=== PATIENT | female | born 1970 | race African-American/Black ===

== ENCOUNTER → 2016-07-12 | Outpatient (CLI) | payer MEDICARE, OTHER ==
[~2016-07-12] MED LIST: (NONE)120 M1 PO; ACETAMINOPHEN PO; ADVAIR; ADVAIR 250-501 EACH IH; ADVAIR 2501 DISK W/D PO; ALBUTEROL17 GM; ALBUTEROL17 GM INH; ALDACTAZIDE PO; ASPIRIN PO; ASPIRIN81 M1 PO; ATIVAN0.5 MG PO; AUGMENTIN PO; AZITHROMYCIN250 MG PO; BENADRYL PO; CALAN PO; CELEBREX PO; COMBIVENT INH14.7 GM INH; COMBIVENT MININEB INH; COMBIVENT U/D3 M2 INH; CRESTOR PO; ESCITALOPRAM OXA5 MG PO; FLEXERIL10 M1 PO; FUROSEMIDE40 MG PO; HCTZ PO; HUMIBID L.1 TAB.SR . PO; HYDROCHLOROTHIA25 MG PO; HYDROCODON-ACE1 EAC7 PO; HYDROCODONE/APA1 T16 PO; KETOPROFEN PO; LANOXIN PO; LASIX PO; LEVAQUIN PO; LIPITOR PO; LIPITOR20 MG PO; LIPITOR40 MG PO; LISINOPRIL; LISINOPRIL1 GM PO; LOPRESSOR PO; MEDROL PO; MOTION RELIEF25 MG PO; MOTION SICKNESS25 M4 PO; MUCUS ER600 MG PO; MULTI-DAY VITAM1 TAB PO; NAPROSYN500 MG PO; NAPROXEN PO; NASACORT AQ16.5 GM; NEURONTIN100 MG PO; NEURONTIN300 MG PO; NITROGYLCERIN SUBLINGUAL; NORCO 5/325 TAB1 TAB PO; OCEAN NASAL SPRAY; OCEAN45 ML; PERCOCET10 PO; PREDNISONE PO; PREDNISONE10 MG; PROAIR HFA8.5 GM INH; PROAIR RESPICL90 MCG INH; PROTONIX PO; SPORANOX100 MG PO; SYMBICORT INH; TUSSIONEX PENN473 ML PO; VENTOLIN HFA IH; VERAPAMIL ER100 MG PO; VERAPAMIL ER180 MG PO; VIBRAMYCIN100 M1 PO; WELCHOL3.75 GM PO; WELLBUTRIN PO; WELLBUTRIN SR150 MG PO; WELLBUTRIN100 MG PO; ZAROXYLYN PO; ZYRTEC10 M2 PO; [UNRECOGNIZED DRUG - OTHER]; [UNRECOGNIZED DRUG - REMARK]
--- NOTE | ~2016-07-12 | MY6 ---
[facility] A Service of [facility] & [facility] / [facility] RADIOLOGY TEXT RESULTS PATIENT: MARIALUISA RAMIREZ LOCATION: [facility] : 70 UNIT #: [id number] AGE: [address]: FERNY OLVERA SEX: F ORDER DR: [id number] [facility] [place] [address] [place], [place] [address] [id number] O MR#: [id number] Acc #: [id number] NAME: MARIALUISA RAMIREZ : 1970 SEX: F STUDY DATE/TIME: 07/12/2016 9:46 UNIT: [facility] ROOM: STUDY DESCRIPTION: MY Mammogram Dx Dig Javier Attending Physician: Ferny Olvera Aprn Referring Physician: Ferny Olvera Aprn Primary Care Physician: Ferny Olvera Aprn MEDICAL IMAGING REPORT This report is preliminary unless electronic signature is present EXAM Bilateral digital diagnostic mammogram and targeted left breast ultrasound 07/12/2016 INDICATIONS 46-year-old female complaining of a discolored raised itchy area in the periareolar left breast for the past month. She denies a palpable abnormality. No personal or family history of breast cancer. History of bilateral breast reduction procedure nearly 26 years ago. TECHNIQUE CC and MLO views of both breasts were obtained and reviewed with an approved CAD device. A true lateral view was obtained on the left. We have no comparisons. This is her baseline study. FINDINGS Breast parenchyma is composed of scattered fibroglandular densities. There are postoperative changes in both breasts in a symmetric pattern characteristic of the history of bilateral breast reduction procedure. There is no dominant nodule, mass or suspicious cluster of microcalcifications. A few benign calcifications are present. No adenopathy, skin thickening or architectural distortion that is non surgical in nature. The area of palpable concern by the patient was marked by the technologist. It is in the periareolar left breast deep to the marker, there is no mammographic abnormality. The breast reduction surgical changes are slightly more prominent on the left than the right. Ultrasound of the area of patient palpable concern was thereafter performed along with ultrasound of the lower hemisphere left breast in the area of the patient's postoperative change, due to its slight asymmetric prominence on the left. [facility] A Service of [facility] & [facility] / [facility] RADIOLOGY TEXT RESULTS PATIENT: MARIALUISA RAMIREZ LOCATION: [facility] : 70 UNIT #: [id number] AGE: [address]: FERNY OLVERA SEX: F ORDER DR: Ultrasound findings: Left breast: The patient was initially scanned independently by the technologist and then rescanned in my presence. The area of patient concern in the periareolar 1 o'clock left breast is confined to the patient's skin. There is no palpable abnormality by the patient. Limited physical exam (with patient consent) was also performed by me here in the department and was negative. There is some scaling and flakiness of the skin lesion and the patient reports it is itchy. Below the level of the skin lesion with ultrasound, however, there is no cystic or solid nodule or other suspicious abnormality. Imaging findings are concordant with mammography and are most characteristic of a dermatologic process for which a dermatologic referral may be useful for further assessment and characterization/treatment. Imaging of the lower hemisphere left breast from the 5 o'clock through 7 o'clock position was also performed and demonstrates expected postoperative scarring related to the history of breast reduction. No other suspicious finding identified and imaging findings are concordant with mammography. Absent new or worsening symptoms in either breast, the patient should return for a repeat screening mammogram in a year. Clinical considerations to determine additional imaging at this time. Findings and recommendations were discussed with the patient here in the department. She voiced understanding and agreement. IMPRESSION 1. Benign diagnostic mammogram and targeted ultrasound of the left breast. There is no suspicious finding on the patient's mammogram to correlate with the area of skin irritation in the periareolar left breast. The patient may benefit from dermatologic referral for further assessment and treatment. 2. Postop changes of breast reduction procedure bilaterally. Targeted ultrasound of the lower hemisphere left breast was performed and demonstrates expected postoperative changes related to the history of breast reduction. 3. Return to an annual screening regimen is recommended. See discussion above. Patient's over the age of 40 are entered into a reminder system with target due date for the next mammogram. A result letter will be sent to the patient. BIRADS: 2 Benign findings. [facility] A Service of [facility] & [facility] / [facility] RADIOLOGY TEXT RESULTS PATIENT: MARIALUISA RAMIREZ LOCATION: [facility] : 70 UNIT #: [id number] AGE: [address]: FERNY OLVERA SEX: F ORDER DR: Dictated by... Demarcus Worley M.D. THIS IS AN ELECTRONICALLY VERIFIED REPORT Demarcus Worley M.D. at 07/13/2016 7:32 AM PAULY/abrahan TD: 07/12/2016 15:36 JOB #: [id number] MEDICAL IMAGING REPORT Page 1 of 1 COPY
--- NOTE | ~2016-07-12 | US24 ---
[facility] A Service of [facility] & [facility] RADIOLOGY TEXT RESULTS PATIENT: MARIALUISA RAMIREZ LOCATION: [facility] : 70 UNIT #: [id number] AGE: [address]: FERNY OLVERA SEX: F ORDER DR: [id number] [facility] [address] [place], [place] [address] [id number] O MR#: [id number] Acc #: [id number] NAME: MARIALUISA RAMIREZ : 1970 SEX: F STUDY DATE/TIME: 07/12/2016 10:19 UNIT: [facility] ROOM: STUDY DESCRIPTION: US Breast Unilateral Attending Physician: Ferny Olvera Aprn Referring Physician: Ferny Olvera Aprn Primary Care Physician: Ferny Olvera Aprn MEDICAL IMAGING REPORT This report is preliminary unless electronic signature is present EXAM Targeted ultrasound left breast 07/12/2016 FINDINGS See report from the bilateral diagnostic mammogram same date for this dictation given. Patients over the age of 40 are entered into a reminder system with target due date for the next mammogram. A result letter will also be sent to the patient. BIRADS: 2, benign findings. Dictated by... Demarcus Worley M.D. THIS IS AN ELECTRONICALLY VERIFIED REPORT Demarcus Worley M.D. at 07/13/2016 7:32 AM PAULY/etelvina TD: 07/12/2016 15:30 JOB #: [id number] MEDICAL IMAGING REPORT Page 1 of 1 COPY
== END | disposition home or self-care (01) ==
LOC: CMAM 09:16
DX: N64.89 Other specified disorders of breast (principal); Z98.890 Other specified postprocedural states
CPT/HCPCS: 76641; G0204

== ENCOUNTER 2016-10-04 19:21 | Observation (INO) | payer MEDICARE, OTHER ==
--- NOTE | ~2016-10-04 | DS ---
Unit #: [id number] #: [id number] Patient: MARIALUISA RAMIREZ [id number] [address] [address] [id number] I MR#: [id number] NAME: MARIALUISA RAMIREZ ROOM: 337 Age: 46 Sex: F Admission Date: 10/05/2016 : 1970 Discharge Date: 10/06/2016 Attending Physician: Gaetano Acevedo M.D. Primary Care Physician: No Primary Care Physician DISCHARGE SUMMARY DISCHARGE DIAGNOSES 1. Chest pain, atypical. 2. Near syncope. 3. Headache. 4. Anxiety. 5. Obstructive sleep apnea, untreated. 6. Morbid obesity. 7. Hypertension. 8. History of cardiomyopathy in 2001. 9. Negative exercise Cardiolite stress test. DISCHARGE MEDICATIONS 1. Albuterol MDI two puffs q.4 hours as needed for shortness of air. 2. Neurontin 100 mg p.o. twice a day. 3. Wellbutrin 100 mg p.o. twice a day. 4. Lexapro 5 mg p.o. daily. 5. Meclizine 25 mg p.o. three times a day. 6. Lasix 40 mg p.o. daily. 7. Lipitor 40 mg p.o. daily. HOSPITAL COURSE This is a 46-year-old -[place] female known to Dr. Acevedo with a prior medical history of cardiomyopathy diagnosed in 2001, hypertension, asthma, obstructive sleep apnea, and peripheral neuropathy. The patient presented from her primary care physician's office with bilateral lower extremity edema and intermittent chest pain described as tightness. The pain was intermittent and lasted only seconds and accompanied with some shortness of air. On October 05, 2016, she underwent a Cardiolite exercise stress test which was negative for inducible ischemia. She also had an echocardiogram with a reported normal LV EF. The report for the echocardiogram is currently unavailable. Upon return to her room from the stress test, she reported experiencing some dizziness while walking in the room, accompanied with darkening vision and chest tightness on the right. It resolved with rest. A CT of the head without contrast was performed and was normal. Orthostatic blood pressures were checked and there was no orthostatic hypotension. Neurology was consulted. Please see their consultation report. Today, she is currently ready for discharge. Her dizziness is improved, although still occasionally present with a constant headache. Her chest tightness still occurs intermittently but is tolerable. PHYSICAL EXAMINATION VITAL SIGNS: Temperature 98.6, heart rate 84, respiratory rate 16, blood Unit #: [id number] #: [id number] Patient: MARIALUISA RAMIREZ pressure 149/92. CHEST: Clear to auscultation without rales, rhonchi, or wheezing. Nonlabored respirations. HEART: S1, S2. Regular rate and rhythm. No murmurs, rubs, or gallops. ABDOMEN: Soft, nontender, nondistended. EXTREMITIES: No pulses are palpable. Trace lower extremity edema. No cyanosis. DIAGNOSTIC STUDIES LABORATORY: Glucose 119, BUN 12, creatinine 0.7, sodium 140, potassium 3.8, chloride 107. Lipid profile: Cholesterol 310, triglycerides 149, LDL 329, HDL 51. Hemoglobin 12.6, hematocrit 38.5, white blood cell count 7.8, platelets 305,000. IMAGING: Chest x-ray done October 04, 2016, showed no acute findings and no cardiomyopathy. Bilateral lower extremity venous Doppler was negative for DVT. CT of the head without contrast showed normal with no acute findings. CARDIOVASCULAR: EKG: Normal sinus rhythm on the monitor. Isolated incident of heart rate 140, sinus tachycardia last p.m. DISCHARGE INSTRUCTIONS 1. The patient will be discharged home today. 2. Followup with primary care physician in one to two weeks. 3. Followup with Dr. Acevedo in four to six weeks. 4. Recommend re-evaluation of obstructive sleep apnea. Chronic headache and left lower extremity swelling could be related to untreated sleep apnea. 5. Continue home medications. Dictated by... JULIETH Quesada/jag TD: 10/09/2016 08:59 JOB #: [id number] DISCHARGE SUMMARY Page 1 of 1 X X DISCHARGE SUMMARY
--- NOTE | ~2016-10-04 | CO ---
Unit #: [id number] #: [id number] Patient: MARIALUISA RAMIREZ [id number] [facility] [address] [place], [place] [address] [id number] I MR#: [id number] NAME: MARIALUISA RAMIREZ ROOM: 337 Age: 46 Sex: F Admission Date: 10/05/2016 : 1970 Attending Physician: Gaetano Acevedo M.D. Primary Care Physician: Primary Care Physician No Consultation Date: 10/06/2016 CONSULTATION REPORT PRIMARY CARE PHYSICIAN Not listed. REASON FOR CONSULTATION Dizziness, loss of vision, and headache. PATIENT IDENTIFICATION This is a 46-year-old right-handed, female, evaluated in room 337 at [facility]. SOURCE OF INFORMATION Obtained from the patient as well as medical record. HISTORY OF PRESENT ILLNESS This is a 46-year-old right-handed, female, known to our service from being seen in 2011 at this facility, seen for similar symptoms at that time. She presents with complaints of chest pain. When the patient was being discharged after workup for chest pain was unremarkable per Cardiology, she complained of feeling lightheaded and reports that she is having vision changes and is concerned about going home. Neurology was consulted and a stat CT of the head was done. Orthostatics were also ordered by Cardiology. When I came in to discuss with the patient, she reports that she is having episodes where she feels lightheaded when she stands up or walks around. She states that "everything goes black" and "I feel like I'm going to pass out." She complains of headache with this many times on the left side, and reports that she has left-sided migraines. She denies loss of consciousness, loss of speech, or speech changes. She denies amaurosis fugax. She reports that all of her symptoms resolved within a matter of seconds that she does not completely lose vision and that she does not lose consciousness. She denies falling. She states that she just feels weak, but is able to prevent herself from falling. She denies confusion, focal weakness or paresthesia, loss of consciousness or loss of awareness, neck pain, injury, fever, chills, or other associated symptoms. She states that this only occurs when she is standing or goes to walk. She states this occurs quickly after standing up. She denies that occurring in sitting or lying position. She denies any stroke-like symptoms or seizure-like presentation and again these symptoms only happen when she stands or walks and never with lying or sitting. She had a head CT done yesterday without contrast on 10/05/2016 as stat and the brain appears normal. Mucosal thickening is noted in the bilateral mastoid air cells with a few tiny air-fluid levels in the left mastoid air cells. She also had bilateral lower extremity venous Dopplers done per Cardiology on 10/04/2016 on this admission that was negative. Chest x-ray on 10/04/2016 that was negative. Unit #: [id number] #: [id number] Patient: MARIALUISA RAMIREZ She underwent exercise test for ischemia that was negative. No arrhythmias noted and normal blood pressure response during exercise as per Cardiology report. She denies any other exacerbating or alleviating factors or any other associated symptoms. She does report chronic migraines, for which she takes Tylenol on occasion. PAST MEDICAL HISTORY 1. cardiomyopathy diagnosed in 2001. Cardiac catheterization at that time that revealed normal coronaries. Echo in 2014 that showed left ventricular ejection fraction of 50% to 55%. 2. Hypertension. 3. Asthma. 4. Peripheral neuropathy. 5. Obstructive sleep apnea, noncompliant with CPAP. 6. Lexiscan Cardiolite in 2014, negative for ischemia. 7. Workup by Neurology in 2011 for syncope, dizziness, and vertigo. Thought to be possibly vagal due to hypoventilation or anxiety attack. Her neurologic workup was unremarkable. She underwent MRI of the brain and MR angiogram of the head and neck, which were all unremarkable. She underwent an MRI of the brain in 2014 for similar symptoms and the brain was essentially unremarkable other than some punctate 2 to 3 hyperintense T2 nonspecific nonenhancing lesions in the bifrontal centrum semiovale, particularly along the left superior aspect, probably related to minimal vasculopathy change like migraine in appropriate clinical setting. 8. . 9. Lap band in 2010. 10. Breast reduction. FAMILY HISTORY Positive for diabetes and congestive heart failure as well as CAD and myocardial infarction. ALLERGIES Stadol, Toradol, and Phenergan. SOCIAL HISTORY She is a nonsmoker, nondrinker, and does not use illicit drugs. MEDICATIONS Home medications include Lipitor, Wellbutrin, citalopram, Lasix, Neurontin, meclizine, and ProAir. REVIEW OF SYSTEMS 14-point review of systems was done. Pertinent positives are as discussed above, otherwise negative. She denies any generalized headaches, but complains of chronic left-sided migraine. She denies any blurred vision or chronic change in vision rather just vision changes related to the above presentation as discussed above. PHYSICAL EXAMINATION VITAL SIGNS: Temperature 98.6, she has been afebrile; pulse 86; respirations 20; blood pressure 149/88, blood pressure in the ER on arrival was 143/92; and oxygen saturation 100%. Height 5 feet 4 inches and weight 313 pounds, BMI 51. NEUROLOGIC: The patient is awake, alert, and oriented to person, place, and time as well as events. No right or left confusion. No finger agnosia. No aphasia, dysarthria, or apraxia. Cranial nerve exam, she demonstrates full crowley of vision. Eyes are conjugate without ptosis or Unit #: [id number] #: [id number] Patient: MARIALUISA RAMIREZ nystagmus. Extraocular movements are intact. Sensation of face and scalp is intact. Strength of muscles of facial expression is intact. Hearing is intact to finger rub and conversation. Tongue is midline. Uvula is midline. Palate elevation is normal. Head turning and shoulder shrug are unremarkable. Neck is supple. Motor exam, she demonstrates normal bulk and tone. Strength is equal 5/5 in all extremities. Sensory exam appears to be intact. Gait normal. Romberg deferred. Reflexes, unable to elicit. Toes are equivocal. Coordination, unremarkable. DIAGNOSTIC STUDIES IMAGING STUDIES: Please see above. LABORATORY RESULTS: Cholesterol 310, triglycerides 149, LDL 229, and HDL 51. TSH 4.10. CBC shows a white count of 7.8, hemoglobin 12.6, hematocrit 38.5, and platelet count 305. PT 11.0, INR 1.0, and PTT is 26.5. BMP unremarkable other than alkaline phosphatase of 93. Initial and repeat troponin are less than 0.05 and 0.03 respectively. IMPRESSION 1. Near syncope. 2. Chest pain, atypical. 3. Obstructive sleep apnea, noncompliant with CPAP. 4. Hypertension. 5. Morbid obesity. PLAN At this time, nothing suggestive of acute primary neurologic etiology. She complains more presyncopal symptoms or near syncopal symptoms and reports of vision change not suggestive of primary neurologic etiology at this time. She had no focal changes or amaurosis fugax noted. Nothing to suggest pseudotumor cerebri at this time. Symptoms only occur with standing or walking. She does appear to have chronic migraines, but not suggestive of pseudotumor cerebri at this time. Discussed with Dr. Paul, who saw the patient as well. He agrees to the above. She extends that it as near syncopal symptoms when she gets up quickly, but no seizure, loss of consciousness, or other focal deficits. Recommend she follow up with Neurology as an outpatient. Consider lumbar puncture and weight loss, but nothing else to add from an inpatient standpoint. The patient may be discharged to follow up with outpatient Neurology as needed. Please call for any questions or issues. We thank you very much for allowing us to assist in the care of this patient. Dictated by... Tamar Benton A.P.R.N. for Coreen Lara/vickey TD: 10/08/2016 04:42 JOB #: [id number] Unit #: [id number] #: [id number] Patient: MARIALUISA RAMIREZ CONSULTATION REPORT Page 1 of 1 X Tamar Benton EQUIP MAINT ENG X CONSULTATION REPORT
--- NOTE | ~2016-10-04 | CT71 ---
[facility] A Service of [facility] & [facility] RADIOLOGY TEXT RESULTS PATIENT: MARIALUISA RAMIREZ LOCATION: [facility] 337-01 : [birth year] UNIT #: [id number] AGE: [address]: Geatano Acevedo MD SEX: F ORDER DR: [id number] [facility] [address] [place], [place] [address] [id number] I MR#: [id number] Acc #: [id number] NAME: MARIALUISA RAMIREZ : 1970 SEX: F STUDY DATE/TIME: 10/05/2016 16:06 UNIT: [address] ROOM: [facility] STUDY DESCRIPTION: CT Head Wo Contrast Attending Physician: Gaetano Acevedo M.D. Ordering Physician: Gaetano Acevedo M.D. Primary Care Physician: No Primary Care Physician MEDICAL IMAGING REPORT This report is preliminary unless electronic signature is present EXAM CT head, 10/05/16. HISTORY New onset vertigo, headache today. History of migraine. TECHNIQUE CT head performed skull base through vertex without intravenous contrast. This CT exam was performed with one or more of the following radiation dose reduction techniques: automatic exposure control, adjustment of mA and/or kV according to patient size, and iterative reconstruction. COMPARISON 02/16/2012. FINDINGS Brainstem unremarkable. Cerebellum and cerebral hemispheres show normal ellis matter-white matter differentiation. No hemorrhage. No evidence of acute cortical ischemia. Midline structures nondisplaced. Basal ganglia intact. Ventricles, cisterns, sulci normal in size and contour. No intra or extraaxial mass effect or abnormal intracranial fluid collection. The visualized intraorbital soft tissues are unremarkable. Visualized paranasal sinuses and mastoid air cells show mucosal thickening in mastoid air cells. There are a few small air-fluid levels in the left mastoid air cells. No fracture. IMPRESSION 1. The brain appears normal. If patient has ongoing neurologic symptoms, consider follow up imaging, preferably with MRI if patient is candidate. 2. Mucosal thickening in the bilateral mastoid air cells with a few tiny air-fluid levels in the left mastoid air cells. Correlate with any clinical indications of mastoid inflammation. STS. [facility] A Service of [facility] & [facility] RADIOLOGY TEXT RESULTS PATIENT: MARIALUISA RAMIREZ LOCATION: [facility] 337-01 : [birth year] UNIT #: [id number] AGE: [address]: Gaetano Acevedo MD SEX: F ORDER DR: Dictated by... Khari Mora M.D. THIS IS AN ELECTRONICALLY VERIFIED REPORT Khari Mora M.D. at 10/11/2016 10:15 AM Patel TD: 10/05/2016 17:12 JOB #: [id number] MEDICAL IMAGING REPORT Page 1 of 1 COPY
--- NOTE | ~2016-10-04 | CR72 ---
[facility] A Service of [facility] & [facility] RADIOLOGY TEXT RESULTS PATIENT: MARIALUISA RAMIREZ LOCATION: [facility] 337-01 : [birth year] UNIT #: [id number] AGE: [address]: Gaetano Acevedo MD SEX: F ORDER DR: [id number] [facility] [address] [place], [place] [address] [id number] E MR#: [id number] Acc #: [id number] NAME: MARIALUISA RAMIREZ : 1970 SEX: F STUDY DATE/TIME: 10/04/2016 20:57 UNIT: [facility] ROOM: STUDY DESCRIPTION: CR Chest Single View Portable Attending Physician: Checo Galvan M.D. Ordering Physician: Ed Winston Krause M.D. Primary Care Physician: No Primary Care Physician MEDICAL IMAGING REPORT This report is preliminary unless electronic signature is present EXAM Single view chest. INDICATION Chest pain. Swollen legs. Hypertension. FINDINGS Single portable AP view chest compared to 01/28/2015. Heart and mediastinal contours within normal limits. Lungs are clear. No pneumothorax. IMPRESSION No acute findings. No interval change. Dictated by... Dante Lewis M.D. THIS IS AN ELECTRONICALLY VERIFIED REPORT Dante Lewis M.D. at 10/05/2016 1:18 PM SAMARIA/derick TD: 10/04/2016 22:15 JOB #: [id number] MEDICAL IMAGING REPORT Page 1 of 1 COPY
--- NOTE | ~2016-10-04 | US84 ---
[id number] [facility] [address] [place], [place] [address] [id number] E MR#: [id number] Acc #: [id number] NAME: MARIALUISA RAMIREZ : 1970 SEX: F STUDY DATE/TIME: 10/04/2016 21:49 UNIT: [facility] ROOM: STUDY DESCRIPTION: US LE Veins Complete Javier Stdy Attending Physician: Cristhian Galvan Ordering Physician: Ed Doc Coreen Krause Primary Care Physician: Primary Care Physician No MEDICAL IMAGING REPORT This report is preliminary unless electronic signature is present EXAM Bilateral lower extremity venous duplex Doppler. INDICATION Bilateral lower extremity swelling and edema for 3 days. Prior DVT 2 years ago. COMPARISON None available. FINDINGS No deep vein thrombus is identified. Patient's common femoral veins through the popliteal veins are widely patent. There is normal compressibility with spontaneous and phasic waveforms. No calf vein thrombus. IMPRESSION Negative for bilateral lower extremity deep vein thrombosis. Dictated by... Dante Lewis M.D. THIS IS AN ELECTRONICALLY VERIFIED REPORT Dante Lewis M.D. at 10/05/2016 1:19 PM SAMARIA/vaishnavi TD: 10/04/2016 22:55 JOB #: [id number] MEDICAL IMAGING REPORT Page 1 of 1 COPY
--- NOTE | ~2016-10-04 | EKG ---
PATIENT: MARIALUISA RAMIREZ UNIT #: [id number] Ventricular Rate: 112 BPM Atrial Rate: 112 BPM P-R Interval: 144 ms QRS Duration: 90 ms Q-T Interval: 364 ms QTC Calculation(Bezet): 496 ms P Carlton: 51 degrees Calculated R Carlton: 47 degrees Calculated T Carlton: 34 degrees Diagnosis Line: Sinus tachycardia Diagnosis Line: Nonspecific T wave abnormality Diagnosis Line: Abnormal ECG Diagnosis Line: When compared with ECG of 19-NOV-2014 09:05, Diagnosis Line: No significant change was found Diagnosis Line: Confirmed by MATTI PAREDES MD ([id number]) on Diagnosis Line: 10/06/2016 3:45:34 PM INTERPRETING MD: BRITTNI
--- NOTE | ~2016-10-04 | BMI ---
[facility] Nutrition Therapy DATE: 10/05/16 Patient: MARIALUISA RAMIREZ Physician: SHIRA Address: [address] Room/Bed: [address] [place] [address], Zip: [place] [address] Admit Date: 10/05/16 Date of : [birth year] Height: 5 4 Weight: 285 135 HIGH BMI NOTE: DX: 46 Y.O. FEMALE ADMITTED FOR CHEST PAIN ANTHROPOMETRICS: 5'4", WT: 285# (139 KG), BMI: 48.9 DIET: NPO RECOMMENDATIONS: 1. ONCE MEDICALLY FEASIBLE, ADVANCE DIET INDICATED TO HEALTHY HEART TO PROMOTE GRADUAL WEIGHT LOSS TOWARDS HEALTHY BMI (19.0-25.0) OR +/-10%IBW RD WILL F/U PER PROTOCOL Respectfully, BOBBY ORTEGA MS, RD, LD Food and Nutritional Services [facility] cc: client file
--- NOTE | ~2016-10-04 | HP ---
Unit #: [id number] #: [id number] Patient: MARIALUISA RAMIREZ [id number] [address] [place], [place] [address] [id number] I MR#: [id number] NAME: MARIALUISA RAMIREZ ROOM: 337 Age: 46 Sex: F Admission Date: 10/05/2016 : 1970 Attending Physician: Gaetano Acevedo M.D. Primary Care Physician: No Primary Care Physician HISTORY AND PHYSICAL CHIEF COMPLAINT Bilateral lower extremity edema and chest discomfort times two to three days. HISTORY OF PRESENT ILLNESS This is a 46-year-old female known to Dr. Acevedo with a prior medical history of cardiomyopathy diagnosed in 2001, hypertension, asthma, obstructive sleep apnea and peripheral neuropathy. She had a cardiac catheterization in 2001 which revealed normal coronaries. Lexiscan Cardiolite stress test in 2014 was negative for ischemia. An echo done 10/2014 showed left ventricular ejection fraction 50%-55%. She is a lifetime nonsmoker, but has a strong family history of premature coronary artery disease. The patient presented from her primary care physician's office with bilateral lower extremity edema and intermittent chest pain. She describes the chest pain as left chest pressure which spreads into her left back and is accompanied by brief shortness of air and nausea. She states the pain lasts only seconds and occurs frequently. It is not relieved with Tylenol or ibuprofen and has been ongoing off and on for 24 hours. In addition she reports waking up at night with headache and feeling like she had stopped breathing. She does have sleep apnea, but is unable to use her CPAP machine. Chest x-ray in the emergency room showed no active disease. She was admitted for observation with plans to do a Cardiolite exercise stress test in the a.m. She states she is still experiencing intermittent chest tightness and pressure in her left chest. PAST MEDICAL HISTORY 1. cardiomyopathy diagnosed in 2001. 2. Cardiac catheterization 2001 revealed normal coronaries. 3. Hypertension. 4. Asthma. 5. Peripheral neuropathy. 6. Obstructive sleep apnea, noncompliant with CPAP. 7. Lexiscan Cardiolite in 2014 negative for ischemia. 8. Echo 11/19/2014 showed left ventricular ejection fraction 50%-55%. 9. Lifetime nonsmoker. PAST SURGICAL HISTORY 1. . 2. Lap band in 2010. 3. Breast reduction. SOCIAL HISTORY Unit #: [id number] #: [id number] Patient: MARIALUISA RAMIREZ She has never smoked. Denies ever using alcohol or any illicit drugs. FAMILY HISTORY Her mother in her 50s, related to diabetes and congestive heart failure. Her brother at age 37 of congestive heart failure. Father at 39 of myocardial infarction. Sister at 37 of congestive heart failure. ALLERGIES Stadol, Toradol, Phenergan. HOME MEDICATIONS 1. Lipitor 40 mg p.o. daily. 2. Wellbutrin 100 mg p.o. b.i.d. 3. Citalopram oxalate 5 mg p.o. daily. 4. Lasix 40 mg p.o. daily. 5. Neurontin 100 mg p.o. b.i.d. 6. Meclizine 25 mg p.o. t.i.d. 7. ProAir 2 puffs q.4 h. p.r.n. shortness of air. REVIEW OF SYSTEMS Denies fever, chills, flu-like symptoms or unintentional weight loss. SKIN: Denies rashes or hives. HEENT: She has frequent headaches. Denies vision loss, hearing loss, epistaxis or dysphagia. NECK: Denies (1) drainage or pain. PULMONARY: Denies recent cough or wheezing. Reports increased dyspnea on exertion and PND. CARDIAC: Chest pain as discussed in history of present illness. Denies palpitations or orthopnea. GI: Reports nausea. Denies vomiting, diarrhea or melena. : Denies hematuria or dysuria. EXTREMITIES: Reports bilateral lower extremity swelling. Denies chronic pain. PHYSICAL EXAMINATION GENERAL: Alert and oriented 46-year-old female resting in bed, in no acute distress. VITALS: Temperature 97.2, heart rate 81, respiratory rate 18, blood pressure 142/66, height 64 inches, weight 135 kg. HEENT: Head is atraumatic and normocephalic. Pupils are equal and round. Mucous membranes are moist. NECK: Supple. Trachea midline. Negative for jugular venous distension. LUNGS: Clear and diminished in the bases. Nonlabored respirations. HEART: S1 and S2. Distant heart tones. No murmur, rub or gallop auscultated. ABDOMEN: Soft, nontender and nondistended. EXTREMITIES: Pulses are palpable. Trace pedal edema. No cyanosis. NEUROLOGIC: Alert and oriented times three. Follows commands without difficulty. Moves all extremities equally. DIAGNOSTIC STUDIES IMAGING: Chest x-ray shows no active disease. LABORATORY: Sodium 140, potassium 3.8, chloride 107, BUN 12, creatinine 0.7, glucose 119, hemoglobin 12.6, hematocrit 38.5, white blood cell count 7.8, platelets 305. BNP 7. Jaeuk-bd-ceyv troponin less than 0.05 and repeat troponin less than 0.03. Unit #: [id number] #: [id number] Patient: MARIALUISA RAMIREZ CARDIOVASCULAR: EKG reveals sinus tachycardia with a ventricular rate of 108 and nonspecific T wave abnormalities. ASSESSMENT 1. Chest pain. 2. History of cardiomyopathy in 2001. 3. Left ventricular ejection fraction 50%-55% per echo 11/19/2014. 4. Hypertension. 5. Obstructive sleep apnea, noncompliant with CPAP. 6. Asthma. 7. Morbid obesity. PLAN 1. Exercise Cardiolite stress test. 2. Stress echocardiogram. 3. TSH and fasting lipid profile. 4. Continue home medication. Dictated by Janet Marie APRN for Coreen King TD: 10/05/2016 10:35 JOB #: [id number] HISTORY AND PHYSICAL Page 1 of 1 X X HISTORY AND PHYSICAL
--- NOTE | ~2016-10-04 | TH ---
Unit #: [id number] #: [id number] Patient: MARIALUISA RAMIREZ [id number] [address] [address] [id number] I MR#: [id number] NAME: MARIALUISA RAMIREZ : 1970 SEX: F STUDY DATE/TIME: 10/05/2016 UNIT: [id number] ROOM: [facility] STUDY DESCRIPTION: NUCLEAR STUDY Attending Physician: Gaetano Acevedo M.D. Primary Care Physician: Primary Care Physician No CARDIOLOGY REPORT EXAM Nuclear Study FINDINGS Baseline EKG normal sinus rhythm. Nonspecific ST-T changes. Resting heart rate 85 per minute, blood pressure 151/82. This 46-year-old patient was exercised on Viral protocol for 4 minutes and 8 seconds achieving heart rate of 162 per minute. Peak blood pressure was 155/100. Exercise was terminated because of fatigue and no ischemic changes noted. No arrhythmias noted. Blood pressure response was normal. INTERPRETATION 1. Negative exercise test for ischemia. 2. No arrhythmias noted. 3. Normal blood pressure response during exercise. 4. Correlate with the Cardiolite study. EXAM Nuclear Study DESCRIPTION This 46-year-old patient was exercised on a treadmill and at the peak of the exercise, the patient was injected with 28.9 mCi of technetium 99 Cardiolite and images were obtained according to the standard SPECT protocol. For rest images, 9.29 mCi of Cardiolite was injected. Images were reviewed in both phases. FINDINGS Overall study quality is excellent. LV cavity size is normal in both images. There is no lung activity. RV is normal. Rotating raw data showed no significant artifact, soft tissue attenuation or GI uptake. Review of SPECT images showed a normal homogeneous radiotracer concentration throughout the myocardium in both the stress and rest images. Gated images showed a normal LV wall thickening and wall motion with an estimated left ventricular ejection fraction 72%. IMPRESSION 1. Myocardial perfusion imaging is normal. 2. No evidence of ischemia or infarct. 3. Normal left ventricular dimensions. 4. Normal systolic left ventricular function with an estimated left Unit #: [id number] #: [id number] Patient: MARIALUISA RAMIREZ ventricular ejection fraction of 72%. Dictated by... Coreen King/morteza TD: 10/05/2016 23:09 JOB #: [id number] CARDIOLOGY REPORT Page 1 of 1 X Jeffrey Villarreal MD CARDIOLOGY REPORT
[~2016-10-04 19:21] MED LIST changes: -ESCITALOPRAM OXA5 MG PO; -MOTION RELIEF25 MG PO; -NEURONTIN100 MG PO; -PROAIR RESPICL90 MCG INH; -WELLBUTRIN100 MG PO
[2016-10-04 21:01] LABS: BASOPHIL# 0.2 X10e3 (0-0.3); BASOPHIL% 2.4 % (0-2.5); EOSINOPHIL# 0.4 X10e3 (0-0.7); EOSINOPHIL% 4.6 % (0.0-7.0); HEMATOCRIT 38.5 % (35.0-45.0); HEMOGLOBIN 12.6 gm/dL (12.0-16.0); LYMPHOCYTE# 3.8 X10e3 (1.0-3.5); LYMPHOCYTE% 48.6 % (17.0-45.0); MEAN CELL VOLUME 81.8 FL (83-96); MEAN CORPUSCULAR HEMOGLOBIN 26.9 PG (28-34); MEAN CORPUSCULAR HGB CONC 32.8 g/dL (30-36); MEAN PLATELET VOLUME 8.2 FL (6.5-11.5); MONOCYTE# 0.5 X10e3 (0-1.0); NEUTROPHIL# 2.9 X10e3 (1.5-7.1); NEUTROPHIL% 37.4 % (40-75); PLATELET COUNT 305 X10e3 (140-420); RED CELL DISTRIBUTION WIDTH 13.7 % (11.0-15.5); WHITE BLOOD COUNT 7.8 X10e3 (4.0-10.5)
[2016-10-04 21:02] LABS: DIFF IND NO
[2016-10-04] MEDS ORDERED: LASIX PO (21:18)
[2016-10-04] MEDS ORDERED: LIPITOR40 MG PO (21:18)
[2016-10-04] MEDS ORDERED: WELLBUTRIN100 MG PO (21:18)
[2016-10-04] MEDS ORDERED: ESCITALOPRAM OXA5 MG PO (21:18)
[2016-10-04 21:20] LABS: PARTIAL THROMBOPLASTIN TIME 26.5 SECONDS (23.5-31.3)
[2016-10-04] MEDS ORDERED: NEURONTIN100 MG PO (21:20)
[2016-10-04] MEDS ORDERED: MOTION RELIEF25 MG PO (21:20)
[2016-10-04] MEDS ORDERED: PROAIR RESPICL90 MCG INH (21:21)
[2016-10-04 21:24] LABS: BILIRUBIN,TOTAL 0.3 mg/dL (0.2-2.0); CALCIUM SERUM 9.6 mg/dL (8.4-10.2); GLOM FILT RATE Estimated 78.3 mL/min (>60); POTASSIUM 3.5 mmol/L (3.5-5.1); PROTEIN TOTAL SERUM 7.5 g/dL (6.0-8.3)
[2016-10-04 21:32] LABS: BILIRUBIN, DIRECT 0.1 mg/dL (0.0-0.2); BILIRUBIN,INDIRECT 0.2 mg/dL (0.0-0.9)
[2016-10-04 21:34] LABS: POC - CKMB 1.1 ng/mL (0.0-7.9); POC - TROPONIN <0.05 ng/mL (<=0.05)
[2016-10-05 00:44] LABS: POC - CKMB 1.1 ng/mL (0.0-7.9); POC - TROPONIN <0.05 ng/mL (<=0.05)
[2016-10-05 04:07] LABS: BUN/CREATININE RATIO 17.14; CALCIUM SERUM 9.5 mg/dL (8.4-10.2); CREATININE SERUM 0.7 mg/dL (0.6-1.4); GLOM FILT RATE Estimated 120.4 mL/min (>60); POTASSIUM 3.8 mmol/L (3.5-5.1)
[2016-10-05 10:13] LABS: MB 1.3 ng/ml
[2016-10-05 10:50] LABS: CHOLESTEROL 310 mg/dL (0-200); HDL CHOLESTEROL 51 mg/dL (35-95); LDL/HDL RATIO 4 RATIO (0-4); TRIGLYCERIDES 149 mg/dL (10-160)
[2016-10-05 11:01] LABS: LDL CHOLESTEROL 229 mg/dL (-130)
== END 2016-10-06 14:44 ==
LOC: CED 19:21 → CEDOF 10-05 00:50 → C3A PCU 10-05 00:50 → CED 10-05 01:09 → CEDOF 10-05 01:09 → C3A PCU 10-05 07:39 → CEDOF 10-05 07:39 → C3A PCU 10-06 14:44
PROVIDERS: Emergency Medicine
DX: R07.89 Other chest pain (principal); R55 Syncope and collapse; R51 Headache; F41.9 Anxiety disorder, unspecified; G47.33 Obstructive sleep apnea (adult) (pediatric); E66.01 Morbid (severe) obesity due to excess calories; I10 Essential (primary) hypertension; M79.89 Other specified soft tissue disorders; Z86.79 Personal history of other diseases of the circulatory system; J45.909 Unspecified asthma, uncomplicated; Z91.19 Patient's noncompliance with other medical treatment and regimen; G62.9 Polyneuropathy, unspecified; Z98.84 Bariatric surgery status; Z83.3 Family history of diabetes mellitus; Z82.49 Family history of ischemic heart disease and other diseases of the circulatory system
CPT/HCPCS: 36415; 70450; 71010; 78452; 80048; 80061; 80076; 82550; 82553; 83880; 84443; 84484; 85025; 85610; 85730; 93005; 93017; 93306; 93970; 94760; 99285; A9500; G0378